=== PATIENT | female | born 1985 | race Caucasian/White ===

== ENCOUNTER 2017-04-05 19:09 | Emergency (ER) | payer MEDICAID, OTHER ==
[~2017-04-05] VITALS: Ht 162.6 cm; Wt 54.0 kg
[~2017-04-05 19:09] MED LIST: BACT800T5 PO
[2017-04-05 19:14] VITALS: BP 120/73; PULSE 98; RESP 16; TEMP 98.7; O2SAT 100
[2017-04-05] MEDS ORDERED: BACT800T5 PO (20:56)
--- NOTE | 2017-04-05 20:58 | PD ---
HPI Chief Complaint: Skin Problem Time Seen by Provider: 20:36 Travel History International Travel<30 days: No Contact w/Intl Traveler<30days: No Traveled to known affect area: No History of Present Illness HPI 31-year-old female arrives with pain and swelling on the right calf. She noticed a insect bite about 3 days ago. It was itchy initially. It has become painful. Redness has developed an increased slightly in size. The area is more painful with palpation. No fever. No numbness tingling or weakness. PFSH Past Medical History Anemia: Yes Diminished Hearing: No Immunizations Current: Yes Tetanus Vaccination: Unknown Influenza Vaccination: Yes ?: Not LMP: 03/24/17 Menopausal: No : 3 Para: 2 Miscarriage: 0 : 0 Past Surgical History Abdominal Surgery: Yes (C SECTION) Section: Yes (X2) Social History Alcohol Use: No Tobacco Use: Yes (0.5 ppd) Substance Use: No Allergies-Medications (Allergen,Severity, Reaction): Coded Allergies: No Known Allergies (Verified Adverse Reaction, Unknown, 04/05/17) Reported Meds & Prescriptions Reported Meds & Active Scripts Active Review of Systems Except as stated in HPI: all other systems reviewed are Neg General / Constitutional: No: Fever Skin: Positive Lesions Physical Exam Narrative GENERAL: 31 yo F, WNWD, NAD, pleasant SKIN: Warm and dry. Approx 7cm greatest diameter erythematous lesion R calf associated with tenderness. no fluctuance. no purulent discharge. HEAD: Atraumatic. Normocephalic. EYES: Pupils equal and round. No scleral icterus. No injection or drainage. ENT: No nasal bleeding or discharge. Mucous membranes pink and moist. NECK: Trachea midline. No JVD. CARDIOVASCULAR: Regular rate and rhythm. RESPIRATORY: No accessory muscle use. Clear to auscultation. Breath sounds equal bilaterally. GASTROINTESTINAL: Abdomen soft, non-tender, nondistended. Hepatic and splenic margins not palpable. MUSCULOSKELETAL: Extremities without clubbing, cyanosis, or edema. No obvious deformities. NEUROLOGICAL: Awake and alert. No obvious cranial nerve deficits. Motor grossly within normal limits. Five out of 5 muscle strength in the arms and legs. Normal speech. PSYCHIATRIC: Appropriate mood and affect; insight and judgment normal. Data Data Last Documented VS Vital Signs Date Time Temp Pulse Resp B/P (MAP) Pulse Ox O2 Delivery O2 Flow Rate FiO2 04/05/17 19:14 98.7 98 16 120/73 (89) 100 VS reviewed MDM Medical Decision Making Medical Screen Exam Complete: Yes Emergency Medical Condition: Yes Medical Record Reviewed: Yes Differential Diagnosis cellulitis, abscess, brown recluse Narrative Course cellulitis present possible brown recluse bite bactrim ds return precautions discussed Diagnosis Primary Impression: Cellulitis Qualified Codes: L03.115 - Cellulitis of right lower limb Med/Other Pt SpecificInfo: Prescription(s) given Scripts Sulfamethoxazole-Trimethoprim (Bactrim DS) 800-160 Mg Tab 1 TAB PO BID for Infection, #20 TAB 0 Refills Prov: Eliazar Mitchell MD 04/05/17 Disposition: 01 DISCHARGE HOME Condition: Stable Eliazar Mitchell MD Apr 05, 2017 20:58
[2017-04-05] MEDS ORDERED: SULFAMETHOXAZOLE-TRIMETHOPRIM DS 800-160 MG TAB PO ONE (21:00)
== END 2017-04-05 21:34 | disposition home or self-care (01) ==
LOC: NEPD 19:09
DX: L03.115 Cellulitis of right lower limb (principal); F17.200 Nicotine dependence, unspecified, uncomplicated
CPT/HCPCS: 99283